=== PATIENT | female | born 1980 | race Native Hawaiian/Other Pacific Islander ===

== ENCOUNTER → 2017-05-27 | Outpatient (CLI) | payer BC ==
[~2017-05-27] MED LIST: ACET1TAB43 PO; DOXY100C42 PO; IBUP-1773 PO; MEDR10TA9 PO
--- NOTE | 2017-05-27 18:24 | Diagnostic Imaging Report ---
INDICATION: Pelvic pain with excessive bleeding. Comparison made with prior examination from 01/18/2016. FINDINGS: The uterus measures 7.8 x 5.2 x 4.9 cm. The endometrial thickness is 4 mm. There is a hypoechoic area in the anterior uterus which is unchanged when compared to the prior examination. This measures 0.8 x 0.8 cm. The right ovary is obscured by bowel gas. The left ovary is normal in size and morphology and demonstrates normal blood flow. There are no adnexal masses. There is no free pelvic fluid. IMPRESSION: 8 mm hypoechoic area in the anterior uterus suspect for subserosal fibroid. Normal endometrium at 4 mm. Right ovary is obscured by bowel gas. Otherwise unremarkable pelvic ultrasound. Dictated by: Dictated on workstation # [id number]
== END ==
LOC: RAD 14:30
PROVIDERS: ATTEND Obstetrics & Gynecology
DX: R93.8 Abnormal findings on diagnostic imaging of other specified body structures (principal)
CPT/HCPCS: 76830; 76856

== ENCOUNTER 2017-06-12 15:36 | Outpatient (CLI) | payer BC ==
[~2017-06-12] VITALS: Ht 170.2 cm; Wt 121.2 kg
[2017-06-12 15:47] VITALS: BP 141/100
[2017-06-12 16:19] LABS: BASOPHILS % (AUTO) 0 % (0-10); EOSINOPHILS # (AUTO) 0.1 10^3/uL (0.0-0.3); EOSINOPHILS % (AUTO) 1 % (0-10); HEMATOCRIT 38 % (35-52); HEMOGLOBIN 11.9 G/DL (11.5-16.0); LYMPHOCYTES # (AUTO) 2.3 X 10^3 (1.0-4.0); LYMPHOCYTES % (AUTO) 19 % (12-44); MEAN CORPUSCULAR HEMOGLOBIN 23 PG (25-34); MEAN CORPUSCULAR HGB CONC 31 G/DL (32-36); MEAN CORPUSCULAR VOLUME 72 FL (80-99); MONOCYTES # (AUTO) 0.5 X 10^3 (0.0-1.0); MONOCYTES % (AUTO) 5 % (0-12); NEUTROPHILS # (AUTO) 9.2 X 10^3 (1.8-7.8); NEUTROPHILS % (AUTO) 76 % (42-75); PLATELET COUNT 294 10^3/uL (130-400); RED BLOOD COUNT 5.25 10^6/uL (4.35-5.85); RED CELL DISTRIBUTION WIDTH 15.9 % (10.0-14.5); WHITE BLOOD COUNT 12.1 10^3/uL (4.3-11.0)
== END 2017-06-12 16:20 | disposition home or self-care (01) ==
LOC: PREOP 15:36
PROVIDERS: ATTEND Obstetrics & Gynecology
DX: Z01.812 Encounter for preprocedural laboratory examination (principal); Z11.2 Encounter for screening for other bacterial diseases; N93.9 Abnormal uterine and vaginal bleeding, unspecified; D25.9 Leiomyoma of uterus, unspecified
CPT/HCPCS: 36415; 85025; 86850; 86900; 86901; 87081

== ENCOUNTER 2017-06-20 07:55 | Day surgery (SDC) | payer BC ==
[~2017-06-20] VITALS: Ht 170.2 cm; Wt 121.2 kg
[2017-06-20 08:15] VITALS: BP 118/66
[2017-06-20] MEDS ORDERED: ceFAZolin 2 GM/50 ML NS 50 ML ONE (08:18)
[2017-06-20] MEDS ORDERED: metroNIDAZOLE 500MG/100ML IVPB 100 ML ONE (08:18)
[2017-06-20] MEDS ORDERED: LACTATED RINGERS 1,000 ML IV PRN ×2 (08:31)
[2017-06-20] MEDS ORDERED: FAMOTIDINE 20MG/2ML IV (PEPCID) IV ONE (08:45)
[2017-06-20] MEDS ORDERED: ONDANSETRON 4 MG/2 ML (SDV) Z0FRAN IV ONE (08:45)
[2017-06-20] MEDS ORDERED: ceFAZolin 2 GM/50 ML NS 50 ML IV ONE (08:45)
[2017-06-20] MEDS ORDERED: metroNIDAZOLE 500MG/100ML IVPB 100 ML IV ONE (08:45)
[2017-06-20] MEDS ORDERED: LIDOCAINE PF 2% 5 ML (XYLOCAINE) VIAL ONE (09:29)
[2017-06-20] MEDS ORDERED: SEVOFLURANE (ULTANE) 15 ML INHAL SOLN ONE ×8 (09:29→11:40)
[2017-06-20] MEDS ORDERED: fentaNYL INJECTION 100 MCG/2 ML AMP ONE (09:29)
[2017-06-20] MEDS ORDERED: LACTATED RINGERS 1,000 ML IV ONE (09:29)
[2017-06-20] MEDS ORDERED: HURRICAINE EXT TUBE (BENZOCAINE) ONE (09:29)
[2017-06-20] MEDS ORDERED: MIDAZOLAM 2 MG/2 ML (VERSED) VIAL ONE (09:29)
[2017-06-20] MEDS ORDERED: proPOfol 200 MG/20 ML (DIPRIVAN) VIAL IV ONE (09:29)
[2017-06-20] MEDS ORDERED: DEXAMETHASONE 10 MG/ML (DECADRON) 1 ML VIAL ONE (09:29)
--- NOTE | 2017-06-20 09:43 | Progress Note-Pre Operative ---
Pre-Operative Progress Note H&P Reviewed The H&P was reviewed, patient examined and no changes noted. Date Seen by Provider: Jun 20, 2017 Time Seen by Provider: 09:35 Date H&P Reviewed: Jun 20, 2017 Time H&P Reviewed: 09:35 Pre-Operative Diagnosis: Fibroid uterus, AUB, BMI 41 JESENIA TRUJILLO DO Jun 20, 2017 09:43
[2017-06-20] MEDS ORDERED: LACTATED RINGERS 1,000 ML IV SCH (09:44)
--- NOTE | 2017-06-20 09:44 | Discharge Inst-Women's Service ---
Discharge Inst-Women's Serv Depart Medication/Instructions New, Converted or Re-Newed RX: RX on Chart Consults/Follow Up Additional Follow Up: Yes Activity Driving Instructions: No Driving for 1 Week NO SMOKING: NO SMOKING Nothing Inside Vagina: No Douching, No [place], No Tampons Diet Discharge Diet: No Restrictions Symptoms to Report to : Bleeding Excessive, Pain Increased, Fever Over 101 Degrees F, Vaginal Bleeding Increase, Questions/Concerns For Any Problems or Questions: Contact Your Physician Skin/Wound Care Infection Signs and Symptoms: Increased Redness, Foul Odor of Wound, Increased Drainage, Skin Itchy or Has a Rash, Increased Swelling, Temperature Above 101 F Operative Area Clean and Dry: Keep Incision Clean/Dry Stitches/[place]/Dermabond: Dermabond, Care of Stitches Bathing Instructions: JESENIA Antunez DO Jun 20, 2017 09:43
[2017-06-20] MEDS ORDERED: ZOLPIDEM 5 MG (AMBIEN) TAB PO PRN (09:45)
[2017-06-20] MEDS ORDERED: ANTACID SUSP 30 ML UDC (MYLANTA) PO PRN (09:45)
[2017-06-20] MEDS ORDERED: SIMETHICONE 80 MG (MYLICON) CHEW PO PRN (09:45)
[2017-06-20] MEDS ORDERED: CHLORASEPTIC LOZENGE MM PRN (09:45)
[2017-06-20] MEDS ORDERED: DOCUSATE SODIUM 100 MG (COLACE) CAP PO PRN (09:45)
[2017-06-20] MEDS ORDERED: ONDANSETRON 4 MG/2 ML (SDV) Z0FRAN IV PRN (09:45)
[2017-06-20] MEDS ORDERED: SIME80TA16 PO (09:49)
[2017-06-20] MEDS ORDERED: Hydrocodone Bit/Acetaminophen PO (09:49)
[2017-06-20] MEDS ORDERED: DOCU100C37 PO (09:49)
[2017-06-20] MEDS ORDERED: IBUP-1773 PO (09:49)
[2017-06-20] MEDS ORDERED: ATRACURIUM 50 MG/5 ML (TRACRIUM) IV ONE (10:52)
[2017-06-20] MEDS ORDERED: morphine INJ 10 MG/ML 1ML (SYR OR VIAL) ONE (11:12)
[2017-06-20] MEDS: KETOROLAC 30 MG/ML VIAL IV PRN ×2 (11:39→19:07)
[2017-06-20] MEDS: morphine INJ 10 MG/ML 1ML (SYR OR VIAL) IVP PRN ×2 (11:42→11:57)
[2017-06-20] MEDS ORDERED: ONDANSETRON 4 MG/2 ML (SDV) Z0FRAN IVP PRN (11:45)
--- NOTE | 2017-06-20 12:11 | Progress Note-Post Operative ---
Post-Operative Progess Note Surgeon (s)/Silk Hanger (s) Surgeon JESENIA TRUJILLO DO Silk Hanger: Haylee Treviño Pre-Operative Diagnosis Fibroid uterus, AUB, BMI 41 Post-Operative Diagnosis same Procedure & Operative Findings Date of Procedure 06/20/17 Procedure Performed/Findings see dictation Anesthesia Type GETA Estimated Blood Loss Estimated blood loss (mL): 50 Specimens/Packing Specimens Removed uterus and fallopian tubes JESENIA TRUJILLO DO Jun 20, 2017 12:11 pm
[2017-06-20 12:30] VITALS: BP 130/82
[2017-06-20 14:05] VITALS: BP 137/88
[2017-06-20 15:45] VITALS: BP 127/79
[2017-06-20] MEDS ORDERED: HYDROcodone/APAP 7.5 MG/325 MG (LORTAB, LORCET PLUS) TABLET PO ONE (17:06)
[2017-06-20] MEDS: HYDROcodone/APAP 7.5 MG/325 MG (LORTAB, LORCET PLUS) TABLET PO PRN ×2 (17:09→23:07)
--- NOTE | 2017-06-20 19:38 | OPERATIVE REPORT ---
DATE OF SERVICE: PREOPERATIVE DIAGNOSES: 1. Abnormal uterine bleeding. 2. Fibroid uterus. 3. Body mass index of 41.9. POSTOPERATIVE DIAGNOSIS: 1. Abnormal uterine bleeding. 2. Fibroid uterus. 3. Body mass index of 41.9. PROCEDURE: Robotic-assisted total laparoscopic hysterectomy with bilateral salpingectomy. SURGEON: Jose Daniel Barker DO. HOME ORGANIZER: JOVANNA Morales. ANESTHESIA: General endotracheal. ESTIMATED BLOOD LOSS: 50 mL. URINE OUTPUT: 100 mL clear at the end of the procedure. FLUIDS: 1100 mL lactated Ringer solution. FINDINGS: Normal-appearing uterus with multiple subserosal fibroids, grossly apparent on visual inspection, grossly normal bilateral ovaries, grossly normal bilateral fallopian tubes. SPECIMEN SENT: Uterus, bilateral fallopian tubes. INDICATIONS FOR PROCEDURE: This 28-year-old female is a patient who has established care in my office approximately 2 years ago. We have been dealing with bleeding issues in a 2-year time span. She has underwent multiple imaging studies, which identified fibroids and has tried more conservative management options. 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 She is wishing to pursue more definitive measures. Alternatives were discussed with the patient in detail and all of her questions were answered pertaining to the alternative measures that could be taken. However, she opted to proceed with a more aggressive approach of hysterectomy. She understood that no further childbearing would be available after this procedure. We discussed the risk of bleeding, infection, damaging the surrounding structures including but not limited to the bowel, bladder, ureters, kidneys, as well as possible need for blood transfusion. We discussed the risks of anesthesia. We discussed the postoperative risks including hematoma formation and deep venous thromboembolism. We discussed preoperative and postoperative expectations as well as the recovery timeframe. After all of her questions were answered, an extensive consultation, the patient was scheduled at her next earliest convenience. Consent was obtained in the preoperative area and the patient was then taken to the operating room. OPERATIVE REPORT IN DETAIL: Once in the operating room, general anesthesia was found to be adequate, placed in dorsal lithotomy position, prepped and draped in normal sterile fashion. Jennings catheter was placed using sterile technique. A weighted speculum inserted in the patient's vagina. A right angle retractor was used to visualize the cervix, which was grasped at 12 o'clock position using a long Allis clamp and 0 Vicryl suture was placed anterior lip of the cervix and the clamp was then removed. The suture was then used with my retraction point. I then sent the uterine cavity that was found to be 8 cm. I then selected an 8 cm Jaimee uterine manipulator tip and 3.5 cm colpotomy ring and advanced the Jaimee device into the intrauterine cavity, deploying the balloon, excellent manipulation is noted. At that point, the colpotomy ring is also advanced around the vaginal fornix. I then performed a change of gloves after removing all of the other instruments from the patient's vagina, I then take my attention to the abdomen where infraumbilically, I infiltrated this area using 0.25% Marcaine and make an 8 mm incision and directed a Veress needle through this incision until intraperitoneal placement confirmed using saline drop test. An opening pressure of 4 mmHg was noted. Then, I proceed to a maximum pressure of 15 mmHg, at which point I removed the Veress needle, introduced an 8 mm blunt da Mason camera trocar. Once this was in place, I am able to confirm entry into place and using the video laparoscope. As the patient was placed in steep Trendelenburg and I am able to identify all of the anatomy necessary to proceed with the case as scheduled, two lateral trocars were placed approximately 10 cm lateral through my infraumbilical trocar. Both these left and right incisions are made with a knife after infiltrating the skin using 0.25% Marcaine and trocars were placed through these incisions under guidance of the laparoscope into the peritoneal cavity. Once these are in place, I bring in the da Mason robot and docked in the appropriate fashion. I placed the da Mason Vessel sealer in left and monopolar maurizio in the right hand. I then took my place at the da Mason operative console. The following dissection was then performed bilaterally. I first grasped the uteroovarian ligament. I bipolar cauterized and transected using the vessel sealer and then grasped. I then make a window through the mesosalpinx using the monopolar maurizio and take this window laterally, freeing the fallopian tube from its blood supply and I then grasped the round ligament bipolar cauterized and transected using the vessel sealer. I then unable to grab both anterior and posterior leaflets of the broad ligament and one bipolar cauterizing bite and transected using the vessel sealer. I take this down to the level of the lower uterine segment. I separate out the anterior and posterior leaflets. Anterior leaflet was taken around to the anterior vaginal fornix. Posterior leaflet was taken around to the posterior vaginal fornix. This allowed me to skeletonize the uterine vessels laterally while staying clear of the ureter. I then bipolar cauterized the uterine vessels and transected them using the vessel sealer and then create a colpotomy at 12 o'clock position using monopolar maurizio and taken circumferentially around the vaginal fornix amputating the cervix from the vagina. I then removed the specimen through the vagina and closed the lateral vaginal apices of the vaginal cuff using 2-0 Vicryl suture in a [id number] fashion. Cutler of suspending them to the uterosacral ligaments. I then closed the remainder of the vaginal cuff using 2-0 V-Loc in running fashion, after which was no active bleeding noted from minimal dissection planes. I undocked Mason robot and proceeded with the remainder of the case laparoscopically. I copiously irrigated the pelvis. Pelvis she has normal saline. Once again, no active bleeding was noted. I then placed FloSeal hemostatic agent over all my planes of dissection to take the patient out of steep Trendelenburg. I removed the lateral trocars under direct visualization of laparoscope and infraumbilical trocars left in place through this to release insufflation and to introduce to 10 mL 0.25% Marcaine for postoperative pain management. I then removed this trocar as well. The skin is then reapproximated using 4-0 Monocryl in interrupted subcuticular stitches. Dermabond was applied incision and Band-Aids placed over these. Jennings catheter was left in place. Two grams of Ancef, 500 mg of Flagyl were given preoperatively for infection prophylaxis. The patient tolerated the procedure well and sent to recovery in stable condition. Job ID: [id number] DocumentID: [id number] Dictated Date: 06/20/2017 12:19:00 Director [place] Date: 06/20/2017 19:37:58 Dictated By: DO ROSEMARIE HERNANDEZ
[2017-06-20 20:45] VITALS: BP 110/66
[2017-06-21 02:18] VITALS: BP 96/58
[2017-06-21] MEDS: IBUPROFEN 600 MG (MOTRIN) TAB PO PRN ×2 (02:18→08:25)
[2017-06-21] MEDS: HYDROcodone/APAP 7.5 MG/325 MG (LORTAB, LORCET PLUS) TABLET PO PRN (06:55)
[2017-06-21 08:15] VITALS: BP 105/66
[2017-06-21 09:15] VITALS: BP 105/66
[2017-06-21] MEDS ORDERED: INFLUENZA TRIvalent 2017-2018 0.5 ML/45 MCG SYR IM ONE (09:15)
== END 2017-06-21 09:15 | disposition home or self-care (01) ==
LOC: SDC 07:55 → WS 12:30 → SDC 06-21 09:15
PROVIDERS: ATTEND Obstetrics & Gynecology
DX: N93.9 Abnormal uterine and vaginal bleeding, unspecified (principal); D25.2 Subserosal leiomyoma of uterus; D25.1 Intramural leiomyoma of uterus; N80.0 Endometriosis of uterus; N72 Inflammatory disease of cervix uteri; F41.9 Anxiety disorder, unspecified; F32.9 Major depressive disorder, single episode, unspecified; E66.01 Morbid (severe) obesity due to excess calories; Z68.41 Body mass index [BMI] 40.0-44.9, adult; Z79.899 Other long term (current) drug therapy
CPT/HCPCS: 84703; 86850; 86900; 86901; 94664

== ENCOUNTER → 2018-11-03 | Outpatient (CLI) | payer BC, OTHER ==
[~2018-11-03] MED LIST changes: +DOCU100C37 PO; +Hydrocodone Bit/Acetaminophen PO; +SIME80TA16 PO
--- NOTE | 2018-11-04 13:13 | Diagnostic Imaging Report ---
INDICATION: Routine screening. COMPARISON: No prior mammograms are available for comparison. This is a baseline study. TECHNIQUE: 2D and 3D bilateral screening mammography was performed with CAD. FINDINGS: Scattered fibroglandular densities are identified bilaterally. No masses or malignant appearing microcalcifications are seen. The axillae are unremarkable. IMPRESSION: No mammographic features suspicious for malignancy are identified. ACR BI-RADS Category 1: Negative. Result letter will be mailed to the patient. Note: At least 10% of breast cancer is not imaged by mammography. Dictated by: Dictated on workstation # [id number]
== END ==
LOC: RAD 15:32
PROVIDERS: ATTEND Nurse Practitioner Family
DX: Z12.31 Encounter for screening mammogram for malignant neoplasm of breast (principal)
CPT/HCPCS: 77067

== ENCOUNTER → 2019-12-11 | Outpatient (CLI) | payer BC ==
--- NOTE | 2019-12-11 19:19 | Diagnostic Imaging Report ---
INDICATION: Routine screening. COMPARISON: Prior mammogram from 11/03/2018. EXAMINATION: 2D and 3D bilateral screening mammography was performed with CAD. FINDINGS: Scattered fibroglandular densities are identified, bilaterally. The parenchymal pattern is stable. No mass or malignant appearing microcalcifications are identified. The axillae are unremarkable. IMPRESSION: No mammographic features suspicious for malignancy are identified. ACR BI-RADS Category 1: Negative. Result letter will be mailed to the patient. Note: At least 10% of breast cancer is not imaged by mammography. Dictated by: Dictated on workstation # [id number]
== END ==
LOC: RAD 08:25
PROVIDERS: ATTEND Nurse Practitioner Family
DX: Z12.31 Encounter for screening mammogram for malignant neoplasm of breast (principal)
CPT/HCPCS: 77063; 77067

== ENCOUNTER → 2020-12-20 | Outpatient (CLI) | payer BC ==
--- NOTE | 2020-12-20 13:47 | Diagnostic Imaging Report ---
INDICATION: Routine screening. COMPARISON: 12/11/2019 and 11/03/2018. TECHNIQUE: 2D and 3D bilateral screening mammography was performed with CAD. FINDINGS: Scattered fibroglandular densities are identified bilaterally. The parenchymal pattern is stable. No mass or malignant-appearing microcalcifications are seen. The axillae are unremarkable. IMPRESSION: No mammographic features suspicious for malignancy are identified. ACR BI-RADS Category 1: Negative. Result letter will be mailed to the patient. Note: At least 10% of breast cancer is not imaged by mammography. Dictated by: Dictated on workstation # [id number]
== END ==
LOC: RAD 07:30
PROVIDERS: ATTEND Family Medicine
DX: Z12.31 Encounter for screening mammogram for malignant neoplasm of breast (principal)
CPT/HCPCS: 77063; 77067

== ENCOUNTER 2021-09-18 18:52 | Emergency (ER) | payer BC ==
[~2021-09-18] VITALS: Ht 167 cm; Wt 128.0 kg
[~2021-09-18 18:52] MED LIST changes: +ACET-11 PO; -ACET1TAB43 PO
[2021-09-18] MEDS ORDERED: LACTATED RINGERS 1,000 ML IV ONE (19:15)
[2021-09-18] MEDS ORDERED: ONDANSETRON 4 MG/2 ML (SDV) Z0FRAN IVP ONE (19:15)
[2021-09-18 20:24] VITALS: BP 145/94
[2021-09-18 20:28] LABS: BASOPHILS % (AUTO) 0 % (0-10); EOSINOPHILS # (AUTO) 0.1 10^3/uL (0.0-0.3); EOSINOPHILS % (AUTO) 1 % (0-10); HEMATOCRIT 47 % (35-52); HEMOGLOBIN 14.3 g/dL (11.5-16.0); LYMPHOCYTES # (AUTO) 1.9 10^3/uL (1.0-4.0); LYMPHOCYTES % (AUTO) 16 % (12-44); MEAN CORPUSCULAR HEMOGLOBIN 24 pg (25-34); MEAN CORPUSCULAR HGB CONC 30 g/dL (32-36); MEAN CORPUSCULAR VOLUME 78 fL (80-99); MEAN PLATELET VOLUME 12.2 fL (9.0-12.2); MONOCYTES # (AUTO) 0.6 10^3/uL (0.0-1.0); MONOCYTES % (AUTO) 5 % (0-12); NEUTROPHILS # (AUTO) 9.4 10^3/uL (1.8-7.8); NEUTROPHILS % (AUTO) 78 % (42-75); PLATELET COUNT 239 10^3/uL (130-400)
[2021-09-18] MEDS ORDERED: PROMETHAZINE INJ 25 MG/ML (PHENERGAN) AMP IVP ONE (20:45)
[2021-09-18 20:49] LABS: ALBUMIN 4.4 GM/DL (3.2-4.5)
[2021-09-18 20:50] LABS: POTASSIUM 3.6 MMOL/L (3.6-5.0)
[2021-09-18 20:51] LABS: CALCIUM 9.2 MG/DL (8.5-10.1)
[2021-09-18 20:52] LABS: TOTAL PROTEIN 7.2 GM/DL (6.4-8.2)
[2021-09-18 20:54] LABS: BILIRUBIN,TOTAL 0.4 MG/DL (0.1-1.0)
[2021-09-18 20:56] LABS: CREATININE SERUM 0.71 MG/DL (0.60-1.30)
[2021-09-18 21:00] LABS: CLARITY,URINE CLEAR; COLOR,URINE YELLOW; GLUCOSE, URINE (UA) NEGATIVE (NEGATIVE); KETONES,URINE TRACE (NEGATIVE); LEUKOCYTE ESTERASE ,URINE NEGATIVE (NEGATIVE); NITRITE,URINE NEGATIVE (NEGATIVE); PROTEIN,URINE NEGATIVE (NEGATIVE)
[2021-09-18 21:18] LABS: BACTERIA,URINE TRACE /HPF; BILIRUBIN,URINE 1+ (NEGATIVE); RBC,URINE 0-2 /HPF
[2021-09-18] MEDS ORDERED: PROM25TA14 PO (22:34)
--- NOTE | 2021-09-18 22:34 | ED General ---
General Chief Complaint: Dizziness/Syncope Stated Complaint: DIZZY, VOM, WEAK Nursing Triage Note: PT PRESENTS WITH C/O DIZZINESS AND N/V SINCE YESTERDAY. REPORTS HAVING THIS ISSUE IN THE PAST WHEN SHE HAD AN INNER EAR INFECTON Source of Information: Patient Exam Limitations: No Limitations History of Present Illness Date Seen by Provider: September 18, 2021 Time Seen by Provider: 19:01 Initial Comments This 40-year-old young lady presents to the emergency room with vertiginous dizziness and vomiting. Symptoms started last night. Dizziness is described as a spinning sensation that fatigues with rest and worsens with movement. She has had a couple of lesser episodes in the past that did not require emergency treatment. Today she is feeling very weak. She has had some difficulty walking due to the dizziness. She believes the symptoms may be a little bit worse with movement of the head to the left. She took Zofran at 1600. She denies any re cent symptoms of infectious illness or URI. Allergies and Home Medications Allergies Uncoded Allergies: ACRYLIC (Allergy, Mild, 10/23/14) Patient Home Medication List Home Medication List Reviewed: Yes Docusate Sodium (Docusate Sodium) 100 Mg Capsule, 100 MG PO BID PRN for CONST IPATION-1ST LINE Prescribed by: JESENIA TRUJILLO on 06/20/17948 Ibuprofen (Ibuprofen) 600 Mg Tablet, 600 MG PO Q6H PRN for PAIN-MODERATE Prescribed by: JESENIA TRUJILLO on 06/20/17948 Promethazine HCl (Promethazine Tablet) 25 Mg Tablet, 25 MG PO Q8H PRN for NAUSEA/VOMITING-2ND LINE Prescribed by: ALEXANDRIA POTTER on 09/18/212233 Simethicone (Simethicone) 80 Mg Tab.chew, 40 MG PO TID PRN for INDIGESTION 2ND LINE Prescribed by: JESENIA TRUJILLO on 06/20/17948 [Hydrocodone Bit/Acetaminophen] 1 EA TABLET, 2 EA PO Q6H PRN for Pain-See Instructions Prescribed by: JESENIA TRUJILLO on 06/20/17948 Review of Systems Review of Systems Constitutional: no symptoms reported EENTM: see HPI Respiratory: no symptoms reported Cardiovascular: no symptoms reported Gastrointestinal: see HPI Genitourinary: no symptoms reported : No Musculoskeletal: no symptoms reported Skin: no symptoms reported Psychiatric/Neurological: See HPI Hematologic/Lymphatic: No Symptoms Reported Immunological/Allergic: no symptoms reported Past Egylfmb-Irnlpd-Yagizx Hx Patient Social History Tobacco Use?: No Substance use?: No Alcohol Use?: No Immunizations Up To Date Influenza Vaccine Up-to-Date: No; Not Current Seasonal Allergies Seasonal Allergies: No Past Medical History Surgeries: Yes Adenoidectomy, Appendectomy, Tonsillectomy Respiratory: No Cardiac: No Neurological: Yes Vertigo : No Reproductive Disorders: Yes (AUB, FIBROID UTERUS) Female 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 4.0oz. 121.689798xt; 45.00 BMI Method: General Appearance: WD/WN, Mild Distress HEENT: PERRL/EOMI, TMs Normal, Normal ENT Inspection, Pharynx Normal Neck: Normal Inspection Respiratory: Lungs Clear, Normal Breath Sounds, No Accessory Muscle Use Cardiovascular: Regular Rate, Rhythm, No Edema, No Murmur Extremity: Normal Inspection, No Pedal Edema Neurologic/Psychiatric: Alert, Oriented x3, No Motor/Sensory Deficits, Normal Mood/Affect, financial management II-XII Norm as Tested Skin: Normal Color, Warm/Dry Progress/Results/Core Measures Suspected Sepsis SIRS Temperature: Pulse: 66 Respiratory Rate: 18 Laboratory Tests 09/18/21 20:17: White Blood Count 12.0H Blood Pressure 145 /94 Mean: 108 Laboratory Tests 09/18/21 20:17: Creatinine 0.71, Platelet Count 239, Total Bilirubin 0.4 Results/Orders Lab Results Laboratory Tests Test 09/18/21 20:17 09/18/21 20:49 Range/Units White Blood Count 12.0 H 4.3-11.0 10^3/uL Red Blood Count 6.03 H 3.80-5.11 10^6/uL Hemoglobin 14.3 11.5-16.0 g/dL Hematocrit 47 35-52 % Mean Corpuscular Volume 78 L 80-99 fL Mean Corpuscular Hemoglobin 24 L 25-34 pg Mean Corpuscular Hemoglobin Concent 30 L 32-36 g/dL Red Cell Distribution Width 15.4 H 10.0-14.5 % Platelet Count 239 130-400 10^3/uL Mean Platelet Volume 12.2 9.0-12.2 fL Immature Granulocyte % (Auto) 0 % Neutrophils (%) (Auto) 78 H 42-75 % Lymphocytes (%) (Auto) 16 12-44 % Monocytes (%) (Auto) 5 0-12 % Eosinophils (%) (Auto) 1 0-10 % Basophils (%) (Auto) 0 0-10 % Neutrophils # (Auto) 9.4 H 1.8-7.8 10^3/uL Lymphocytes # (Auto) 1.9 1.0-4.0 10^3/uL Monocytes # (Auto) 0.6 0.0-1.0 10^3/uL Eosinophils # (Auto) 0.1 0.0-0.3 10^3/uL Basophils # (Auto) 0.0 0.0-0.1 10^3/uL Immature Granulocyte # (Auto) 0.0 0.0-0.1 10^3/uL Sodium Level 140 135-145 MMOL/L Potassium Level 3.6 3.6-5.0 MMOL/L Chloride Level 103 98-107 MMOL/L Carbon Dioxide Level 24 21-32 MMOL/L Anion Gap 13 5-14 MMOL/L Blood Urea Nitrogen 10 7-18 MG/DL Creatinine 0.71 0.60-1.30 MG/DL Estimat Glomerular Filtration Rate 109 BUN/Creatinine Ratio 14 Glucose Level 101 70-105 MG/DL Calcium Level 9.2 8.5-10.1 MG/DL Corrected Calcium 8.9 8.5-10.1 MG/DL Magnesium Level 2.0 1.6-2.4 MG/DL Total Bilirubin 0.4 0.1-1.0 MG/DL Aspartate Amino Transf (AST/SGOT) 13 5-34 U/L Alanine Aminotransferase (ALT/SGPT) 15 0-55 U/L Alkaline Phosphatase 69 40-136 U/L Total Protein 7.2 6.4-8.2 GM/DL Albumin 4.4 3.2-4.5 GM/DL Serum Test, Qualitative NEGATIVE NEGATIVE Urine Color YELLOW Urine Clarity CLEAR Urine pH 5.0 5-9 Urine Specific [place] >=1.030 1.016-1.022 Urine Protein NEGATIVE NEGATIVE Urine Glucose (UA) NEGATIVE NEGATIVE Urine Ketones TRACE H NEGATIVE Urine Nitrite NEGATIVE NEGATIVE Urine Bilirubin 1+ H NEGATIVE Urine Urobilinogen 0.2 < = 1.0 MG/DL Urine Leukocyte Esterase NEGATIVE NEGATIVE Urine RBC (Auto) 1+ H NEGATIVE Urine RBC 0-2 /HPF Urine WBC NONE /HPF Urine Squamous Epithelial Cells 2-5 /HPF Urine Crystals NONE /LPF Urine Bacteria TRACE /HPF Urine Casts NONE /LPF Urine Mucus LARGE H /LPF Urine Culture Indicated NO My Orders Orders - ALEXANDRIA CURRIE MD Cbc With Automated Diff (09/18/21 19:01) Comprehensive Metabolic Panel (09/18/21 19:01) Hcg,Qualitative Serum (09/18/21 19:01) Magnesium (09/18/21 19:01) Ua Culture If Indicated (09/18/21 19:01) Ed Iv/Invasive Line Start (09/18/21 19:01) Lactated Ringers (Lr 1000 Ml Iv Solution (09/18/21 19:15) Ondansetron Injection (Zofran Injectio (09/18/21 19:15) Promethazine Injection (Phenergan Injec (09/18/21 20:45) Medications Given in ED Vital Signs/I&O 09/18/21 09/18/21 20:24 21:53 Pulse 66 64 Resp 18 18 B/P (MAP) 145/94 (111) 146/89 Pulse Ox 97 97 O2 Delivery Room Air Room Air 09/19/21 00:00 Intake Total 1000 ml Balance 1000 ml Capillary Refill : Blood Pressure Mean: 108 Progress Note : Progress Note Patient was treated with a liter of LR and Zofran followed by Phenergan mixed in the remaining LR bag. Labs were reviewed and were relatively unremarkable. After treatment, [place]-Hallpike was performed. This did not elicit significant symptoms or nystagmus on either side. Raya maneuver did not appear necessary. Instructions for Raya maneuver were dispensed at discharge. Patient was feeling much better. We discussed methods of treatment at home if symptoms were to return. Prescriptions were provided. See discharge instructions for further discussion. Departure Impression Primary Impression: Vertigo Additional Impression: Nausea & vomiting Qualified Codes: R11.2 - Nausea with vomiting, unspecified Disposition: 01 HOME, SELF-CARE Condition: Improved Departure-Patient Inst. Referrals: ANGELICA ALBERT MD (PCP/Family) Primary Care Physician Patient Instructions: Vertigo ED Add. Discharge Instructions: Drink plenty of clear liquids to stay well-hydrated. The exact cause of your vertigo is uncertain but it may be related to benign paroxysmal positional vertigo. This condition can sometimes be treated by the Raya maneuver. See the handout attached or review videos of the Raya maneuver by credible sources on YouTube for instructions. This may be done at home for recurrence of vertigo. For nausea and vomiting you may use Zofran (ondansetron) as previously prescribe d. You may follow this with either Phenergan (promethazine) as prescribed or meclizine 25 mg every 6 hours as needed primarily for treatment of dizziness or persistent nausea after Zofran. Do not take both Phenergan and meclizine as this may cause excessive drowsiness. If you have recurrent bouts of vertigo and/or nausea and vomiting, please follow-up with your primary care provider. If symptoms are intolerable or not treated well with methods described above, please return to the emergency room. All discharge instructions reviewed with patient and/or family. Voiced understanding. Scripts Promethazine HCl (Promethazine Tablet) 25 Mg Tablet 25 MG PO Q8H PRN for NAUSEA/VOMITING-2ND LINE, #10 TAB 0 Refills May also be used with vertigo without significant nausea or vomiting. Prov: ALEXANDRIA CURRIE MD 09/18/21 Copy Copies To 1: ANGELICA ALBERT MD, JOSHUA T MD September 18, 2021 22:34
== END 2021-09-18 22:40 | disposition home or self-care (01) ==
LOC: EDUNIT# 18:52 → ER 18:56
DX: R42 Dizziness and giddiness (principal); R11.2 Nausea with vomiting, unspecified; Z32.02 Encounter for pregnancy test, result negative
CPT/HCPCS: 36415; 80053; 81000; 83735; 84703; 85025

== ENCOUNTER → 2022-01-18 | Outpatient (CLI) | payer BC ==
[~2022-01-18] MED LIST changes: +PROM25TA14 PO
--- NOTE | 2022-01-19 09:30 | Diagnostic Imaging Report ---
3D bilateral screening mammogram with CAD. COMPARISONS: 12/20/2020, 12/11/2019 and 11/03/2018. At this time, there are no current complaints. TECHNIQUE: 3-D bilateral screening mammogram The current study was also evaluated with a Computer Aided Detection (CAD) system. At this time, there are no current complaints. FINDINGS: The fibroglandular tissue in both breasts is heterogeneously dense. This does limit the sensitivity of this exam. Overall, there does not appear to have been any significant change when compared to the prior study. No primary or secondary sign of malignancy is noted. IMPRESSION: There is no radiographic evidence for malignancy. BI-RADS CATEGORY: 1. NEGATIVE. ACR BI-RADS Category 1: Negative. Result letter will be mailed to the patient. Note: At least 10% of breast cancer is not imaged by mammography. Dictated by: Dictated on workstation # [id number]
== END ==
LOC: RAD 15:45
PROVIDERS: ATTEND Nurse Practitioner Family
DX: Z12.31 Encounter for screening mammogram for malignant neoplasm of breast (principal)
CPT/HCPCS: 77063; 77067

== ENCOUNTER → 2023-01-23 | Outpatient (CLI) | payer OTHER ==
--- NOTE | 2023-01-23 10:55 | Diagnostic Imaging Report ---
INDICATION: Routine screening. COMPARISON: 01/18/2022 and 12/20/2020. TECHNIQUE: 2D and 3D bilateral screening mammography was performed with CAD. FINDINGS: Scattered fibroglandular densities are identified bilaterally. The parenchymal pattern is stable. No mass or malignant-appearing microcalcifications are seen. Occasional benign calcifications are noted. The axillae are unremarkable. IMPRESSION: No mammographic features suspicious for malignancy are identified. ACR BI-RADS Category 2: Benign findings. Result letter will be mailed to the patient. Note: At least 10% of breast cancer is not imaged by mammography. Dictated by: Dictated on workstation # [id number]
== END ==
LOC: RAD 07:21
PROVIDERS: ATTEND Family Medicine
DX: Z12.31 Encounter for screening mammogram for malignant neoplasm of breast (principal)
CPT/HCPCS: 77063; 77067

== ENCOUNTER 2023-04-29 19:53 | Emergency (ER) | payer OTHER ==
[~2023-04-29] VITALS: Ht 170.2 cm; Wt 127.0 kg
--- NOTE | 2023-04-29 20:31 | ED Cough/URI ---
General Chief Complaint: Cough/Cold/Flu Symptoms Stated Complaint: CHEST CONGESTION, BODY ACHES, COUGH Nursing Triage Note: PT AMB TO RM 9 W C/O CONGESTION, WHEEZING, COUGH, GRIGSBY, BODY ACHES, AND CHILLS. REPORTS SYMPTOMS STARTED LAST NIGHT, WORSE TODAY. PT A&OX4, NO RESP DISTRESS NOTED. Source: patient Exam Limitations: no limitations History of Present Illness Date Seen by Provider: Apr 29, 2023 Time Seen by Provider: 20:26 Initial Comments Patient is a 42-year-old female who presents ED with head congestion, nasal congestion, wheezing cough headache body aches and chills. She states symptoms started last night. She started develop flulike symptoms last night. This became worse today. She started having a cough with wheezing. She states she had a warm blanket over her chest. This improved after she remove the blanket. She also reports chills body aches weakness.*Developing a sore throat later this evening. Denies history of COPD, asthma, coronary artery disease. She reports subjective fever. Nausea vomiting or diarrhea. Denies take any medication at home. She does have a history of vaping. She denies of any specific chest pain or shortness of breath Allergies and Home Medications Allergies Uncoded Allergies: ACRYLIC (Allergy, Mild, 10/23/14) Patient Home Medication List Home Medication List Reviewed: Yes Docusate Sodium (Docusate Sodium) 100 Mg Capsule, 100 MG PO BID PRN for CONSTIPATION-1ST LINE Prescribed by: JESENIA TRUJILLO on 06/20/17948 Ibuprofen (Ibuprofen) 600 Mg Tablet, 600 MG PO Q6H PRN for PAIN-MODERATE Prescribed by: JESENIA TRUJILLO on 06/20/17948 Promethazine HCl (Promethazine Tablet) 25 Mg Tablet, 25 MG PO Q8H PRN for NAUSEA/VOMITING-2ND LINE Prescribed by: ALEXANDRIA POTTER on 09/18/214 Simethicone (Simethicone) 80 Mg Tab.chew, 40 MG PO TID PRN for INDIGESTION 2ND LINE Prescribed by: JESENIA TRUJILLO on 06/20/17948 [Hydrocodone Bit/Acetaminophen] 1 EA TABLET, 2 EA PO Q6H PRN for Pain-See Instructions Prescribed by: JESENIA TRUJILLO on 06/20/17948 Review of Systems Review of Systems Constitutional: No chills, No diaphoresis EENTM: nose congestion; No ear pain, No blurred vision, No double vision, No mouth pain, No mouth swelling, No nose pain, No throat pain Respiratory: cough; No short of breath Gastrointestinal: No abdominal pain, No diarrhea, No nausea, No vomiting Genitourinary: No decreased output, No discharge Musculoskeletal: No back pain, No joint pain Skin: No change in color, No change in hair/nails All Other Systems Reviewed Negative Unless Noted: Yes Past Jfrkaux-Gqferl-Mioolq Hx Patient Social History Tobacco Use?: No Use of E-Cig and/or Vaping dev: Yes E-Cig or Vaping type used: Marijuana Substance use?: Yes Substance type: Marijuana Substance frequency: Once in a while Alcohol Use?: Yes Alcohol type: Wine Alcohol Frequency: Once in a while Seasonal Allergies Seasonal Allergies: No Past Medical History Surgeries: Yes Adenoidectomy, Appendectomy, Tonsillectomy Respiratory: No Cardiac: No Neurological: Yes Vertigo Reproductive Disorders: Yes (AUB, FIBROID UTERUS) Female Reproductive Disorders: Denies [employer] History: Hysterectomy Sexually Transmitted Disease: No HIV/AIDS: No Gastrointestinal: No Musculoskeletal: No Endocrine: No HEENT: Yes (Vertigo) Loss of Vision: Denies Hearing Impairment: Denies Cancer: No Psychosocial: Yes ADD/ADHD, Anxiety Adverse Reaction/Blood Tranf: No (N/A) Family Medical History No Pertinent Family Hx Physical Exam Vital Signs - First Documented 04/29/23 20:02 Temp 37.5 Pulse 108 Resp 18 B/P (MAP) 171/105 (127) Pulse Ox 96 O2 Delivery Room Air Capillary Refill : Less Than 3 Seconds Height: 5'7.00" Weight: 267lbs. 4.0oz. 121.664455oo; 43.00 BMI Method: General Appearance: WD/WN, no apparent distress Eyes: Bilateral Eye Normal Inspection, Bilateral Eye PERRL, Bilateral Eye EOMI HEENT: PERRL/EOMI, normal ENT inspection, TMs normal, pharynx normal Neck: non-tender, full range of motion, supple, normal inspection Respiratory: chest non-tender, lungs clear, normal breath sounds, no respiratory distress, no accessory muscle use Cardiovascular: regular rate, rhythm, no edema, no gallop, no JVD Gastrointestinal: normal bowel sounds, non tender, no organomegaly Extremities: normal range of motion, non-tender, normal inspection, no pedal edema 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, no motor/sensory deficits, alert, normal mood/affect, oriented x 3 Skin: normal color, warm/dry Progress/Results/Core Measures Suspected Sepsis SIRS Temperature: Pulse: 108 Respiratory Rate: 18 Blood Pressure 171 /105 Mean: 127 Results/Orders Lab Results Laboratory Tests Test 04/29/23 20:04 Range/Units Influenza Type A (RT-PCR) Not Detected Not Detecte Influenza Type B (RT-PCR) Not Detected Not Detecte SARS-CoV-2 RNA (RT-PCR) Detected H Not Detecte My Orders Orders - FESTUS KHANNA Covid 19 Inhouse Test (04/29/23 20:00) Influenza A And B By Pcr (04/29/23 20:00) Dexamethasone Oral Soln (Ed) (Dexamethas (04/29/23 20:48) Dexamethasone Injection (Dexamethasone (04/29/23 21:00) Medications Given in ED Current Medications Medications Dose Ordered Sig/Devorah Route Start Time Stop Time Status Last Admin Dose Admin Dexamethasone Sodium Phosphate 10 mg ONCE ONCE IM 04/29/23 21:00 04/29/23 21:01 DC 04/29/23 20:58 10 MG Vital Signs/I&O 04/29/23 20:02 Temp 37.5 Pulse 108 Resp 18 B/P (MAP) 171/105 (127) Pulse Ox 96 O2 Delivery Room Air Capillary Refill : Less Than 3 Seconds Blood Pressure Mean: 127 Departure Communication (PCP) Patient is a 42-year-old female presents ED with cough runny nose flulike symptoms. Symptoms started last night worse today. She is concerned that she is wheezing at home. No history of COPD asthma or smoking. She does vape.. Differential diagnosis viral syndrome, sinusitis, pneumonia. On exam there is no evidence of wheezing. Lung sounds clear bilateral. No crackling or rhonchi. Bilateral TMs clear. Oropharynx patent without erythema swelling or exudate. She was slightly tachycardic but afebrile. Up-to-date on her COVID vaccines. Soft abdomen. No vomiting or diarrhea. She appears well-hydrated. COVID influenza swabs were obtained which she tested positive for COVID. She has no significant cormorbidities suggesting treatment at this time. She did receive a dose of IM dexamethasone 10 mg. She had no wheezing during her exam. Oxygen 99%. At this time recommend conservative treatment. There is no evidence suggesting strep, pneumonia, otitis media. If any worsening symptoms such as difficulty breathing to return back to ED. she was slightly hypertensive but did improve without any current treatment. Continue monitoring blood pressure at home. She has no chest pain or shortness of breath at this time. No cardiac history Impression Primary Impression: URI (upper respiratory infection) Additional Impression: COVID-19 Disposition: 01 HOME, SELF-CARE Condition: Stable Departure-Patient Inst. Decision time for Depature: 20:46 Referrals: ANGELICA ALBERT MD (PCP/Family) Primary Care Physician Patient Instructions: COVID-19 (DC) Add. Discharge Instructions: Recommending isolate yourself for 5 days. As long as you are asymptomatic may return back to work for additional 5 days of wearing a mask. If any worsening symptoms return back to ED. All discharge instructions reviewed with patient and/or family. Voiced understanding. Work/School Note: Work Release Form Date Seen in the Emergency Department: Apr 29, 2023 Return to Work: May 06, 2023 FESTUS KHANNA Apr 29, 2023 20:31
[2023-04-29] MEDS ORDERED: dexAMETHasone ORAL SOLUTION 1 MG/ML 5 ML UDC PO STA (20:48)
[2023-04-29] MEDS ORDERED: dexAMETHasone INJ 10 MG/ML 1 ML VIAL IM ONE (21:00)
[2023-04-29 21:01] VITALS: BP 144/91
== END 2023-04-29 21:01 | disposition home or self-care (01) ==
LOC: EDUNIT# 19:53 → ER 19:55
DX: U07.1 COVID-19 (principal); J06.9 Acute upper respiratory infection, unspecified; R09.81 Nasal congestion; R06.2 Wheezing; F17.290 Nicotine dependence, other tobacco product, uncomplicated
CPT/HCPCS: 87636; 99284